=== PATIENT | female | born 1950 | race Caucasian/White ===

== ENCOUNTER → 2018-05-01 | Outpatient (CLI) | payer MEDICARE, BC ==
--- NOTE | 2018-05-01 10:34 | RADIOLOGY REPORT (SQ) ---
EXAM DESCRIPTION: COOKIE SWALLOW COMPLETED DATE/TIME: 05/01/2018 9:04 am REASON FOR STUDY: ASPIRATION SYNDROME (T17.900A) T17.900A UNSP FB IN RESP TRACT, PART UNSP CAUSING ASPHYX, IN recurrent pneumonias, coughing with meals COMPARISON: None. TECHNIQUE: Videofluoroscopic swallowing examination was performed in conjunction with speech patholo gy. Videofluoroscopic imaging was obtained and reviewed and these are the findings: RADIATION DOSE: 1 minutes 28 seconds of fluoroscopy was used. 1 images saved to PACS. LIMITATIONS: None FINDINGS: The patient was brought into the fluoro room and placed upright on a modified barium swall ow chair. The patient was then given multiple consistencies mixed with barium to swallow under live fluoroscopic video guidance. According to the Speech Pathologist there was no penetration or aspirat ion. IMPRESSION: NO EVIDENCE OF PENETRATION OR ASPIRATIONPLEASE SEE SPEECH PATHOLOGIST REPORT FOR OTHER F INDINGS AND RECOMMENDATIONS. COMMENT: Quality ID [id number]: Final reports for procedures using fluoroscopy that document radiation exp osure indices, or exposure time and number of fluorographic images (if radiation exposure indices are not available) TECHNICAL DOCUMENTATION: JOB ID: [id number] [employer]- All Rights Reserved Reading location - IP/workstation name: [email or web address]
--- NOTE | 2018-05-01 10:38 | ST Modified Barium Swallow ---
Recommendation - Recommendations Recommendations: No diet change recommendations at this time. Recommend follow- up with negative spotter due to nature of swallowing concerns. Medical Diagnoses - Medical Diagnoses Medical Diagnosis Description & ICD-10 Code(s): T17.900A aspiration syndrome Other Medical Diagnoses/Co-Morbidities: Per physician note: acute bronchitis, acute upper respiratory infection, chronic obstructive pulmonary disease, nocturnal hypoxemia, moderate COPD, recurrent pneumonia, aspiration syndrome. Per patient report: indegestion and seasonal allergies ST Modified Barium Swallow - General Date: 05/01/18 Referring Physician: Lauri Aviles MD Risks/Precautions: None Date of Onset: 04/08/18 - Date of physician note Reason for Referral: Recurrent pneumonia - History History obtained from: Patient -: Medical - Per patient report: recurrent pneumonia and bronchitis. Coughing/ choking with PO. Globus sensation every time she eats. Patient reports she avoids steak, and occasionally has difficulty swallowing thin liquids an pills. Patient was previously taking prilosec for reflux, but is no longer. Medications: Per patient report: Vitamin D, Vitamin B12, Tylenol PRN, Inhaler, Albuterol, Tums PRN Allergies: Per prior medical report: Codeine, Erythromycin, Zyrtec, Cipro, Sulfa , Serevent, Elaine, Tetracycline. Per patient report: tetnus, antibiotics - Functional Status Prior Functional Status: INDEPENDENT: feeding - Independent Current Functional Limitations: feeding - Coughing, globus sensation, and choking with meals - Subjective Patient/caregiver goal(s): safe swallow, r/o aspiration Cognitive-Linguistic Function: WNL Speech Intelligibility: WNL Current Nutritional Means: PO Current PO diet: Regular Current symptoms: Coughing, Pneumonia, c/o Globus sensation Pain: no signs/symptoms of pain - Objective Assessment: Upright, Left Lateral - Food Trials Used Food trials used: Thin liquids, Pureed, Regular The patient: Was Able to Self Feed, via cup, via spoon - Oral-Motor Skills Dentition: Partial - Assessment Oral prep: Normal Labial closure: Adequate Leakage: None Mastication: Adequate Lingual Movement: Normal Oral stage: Normal for this Procedure - Pharyngeal Stage Initiation of Pharyngeal Stage Reflex: Normal Decreased laryngeal elevation: No Reduced Velopharyngeal Closure: no Reduced pressure generation: No reduced tongue-based retraction: No Pre-swallow pooling in valleculae: None Pre-Swallow pooling in pyriforms: None Reduced Thyro-Hyoid approximation: No Reduced epiglottic excursion: No Reduced pharyngeal peristalsis/contraction: No Multiple Swallows with: Cleared w/ Dry Swallow Post-swallow residulas vallecular: Mild - Solid trials only Post-Swallow residuals in pyriforms: Mild Post-Swallow Residuals: no residuals Reduced Cricopharyngeal opening: No - Esophageal Stage Esophageal Stage: Signs of retention in upper esophageal region - Fall Risk Assessment Medications/Conditions that increase fall risks include: Antidepressants, sedatives, anti-arrhythmic, diuretic, benzodiazipenes, neuroleptics. BP regulation problems, cardiac problems, balance or gait deficits, neurological problems. Is patient considered at risk for falls: no Fall Risk Actions Taken: No action needed - Behavioral Observations During evaluation process patient: was pleasant, was cooperative, able to answer questions, provided medical history - Treatment / Educational Needs: Treatment/Education Needs: Treatment consisted of patient education on the role of the Speech Pathologist. Patient's plan of care and golas were communicated as well as scheduling and attendance policies. Recommendations for initial home program were shared. Patient demonstrated understanding and verbalized agreement. - Impression/Summary Laryngeal Penetration: Flash Consistency: Thin Tracheal Aspiration: no Patient presents with: Normal swallow at eval Risk of Aspiration: Minimal Risk of nutritional compromise: None Evaluation and Findings: PO trials of thin, pureed and regular administered. Flash penetration noted on thin liquids. Residue noted in the valeculae with puree and solid trials; patient felt this and self-cueed to dry swallow and utilize liquid wash. Residue cleared with dry swallow and/or liquid wash. Reduced movement of material in upper esophageal region noted. No aspiration noted on any trials. No diet change recommendations at this time. - Recommendations NPO: no Solid diet recommendations: Regular Liquid Diet Modification: Thin Strict aspiration precautions: No Pt/Family education and followup with MD: Yes Dysphagia therapy with HOMEBIRTH MIDWIFE: no Reflux Precautions: Taught to Patient Recommended techniques: Fully Upright During Meal, Small Bites and Sips, Alternate Bites/Sips Supervision: Independent Information, Precautions and Recommendations: Patient (Written), Patient (Verbal ) - Plan of Care Strategies to optimize patient understanding include:: ongoing assessment of educational needs, implementation of educational strategies, and re-education. - - -: Thank you for the opportunity to work with this patient and his/her family. Should you have any questions about this patient's plan or progress, I can be reached at [phone]. Charge G Code? - - -: Yes ST [facility] Impairment Category - Rationale Based On Rationale Based On: Clin Find., Obj Measures - Swallowing Current G8996: CH 0% Impaired Goal G8997: CH 0% Impaired Discharge G8998: CH 0% Impaired
== END ==
LOC: RAD 08:15
PROVIDERS: ATTEND Internal Medicine Pulmonary Disease
DX: T17.900A Unspecified foreign body in respiratory tract, part unspecified causing asphyxiation, initial encounter (principal); R13.10 Dysphagia, unspecified; J44.9 Chronic obstructive pulmonary disease, unspecified
CPT/HCPCS: 74230; 92611; G8996; G8997; G8998